=== PATIENT | female | born 1950 | race Hispanic/Latino ===

== ENCOUNTER 2024-12-30 07:18 | Outpatient (CLI) | payer MEDICARE ==
[2024-12-30] MEDS ORDERED: Iopamidol 300 61% 100 ML VIAL FS ONE (09:57)
== END 2024-12-30 07:19 | disposition home or self-care (01) ==
LOC: CSHCT 07:18
PROVIDERS: ATTEND Student in an Organized Health Care Education/Training Program
DX: R19.7 Diarrhea, unspecified (principal); R10.9 Unspecified abdominal pain; K57.30 Diverticulosis of large intestine without perforation or abscess without bleeding; R59.0 Localized enlarged lymph nodes
CPT/HCPCS: 74178